=== PATIENT | female | born 1975 | race Two or more races ===

== ENCOUNTER → 2016-11-11 | Outpatient (CLI) | payer BC ==
[~2016-11-11] MED LIST: No meds per pt.
== END | disposition home or self-care (01) ==
LOC: STAR 08:42
PROVIDERS: ATTEND Obstetrics & Gynecology Female Pelvic Medicine and Reconstructive Surgery
DX: Z02.9 Encounter for administrative examinations, unspecified (principal)

== ENCOUNTER 2016-11-17 07:08 | Day surgery (SDC) | payer BC, OTHER ==
[~2016-11-17] VITALS: Ht 162.6 cm; Wt 99.3 kg
[~2016-11-17 07:08] MED LIST changes: +BUPIVACAINE/PF 0.25% ONE; +EPINEPHRINE 1 MG/ML, 1ML ONE; +NEOMY/POLYMYXIN B GU IRR. 1 ML IRRIG ONE
[2016-11-17] MEDS ORDERED: LACTATED RINGERS 1,000 ML IV SCH (07:43)
[2016-11-17 07:47] VITALS: BP 139/81
[2016-11-17 08:05] LABS: HCG UR OBC PASS
[2016-11-17] MEDS ORDERED: MIDAZOLAM 1 MG/ML, 2ML ONE (08:23)
[2016-11-17] MEDS ORDERED: FENTANYL PF 1000 MCG/20ML ONE (08:23)
[2016-11-17] MEDS ORDERED: FENTANYL PF 100 MCG/2ML ONE ×2 (08:24→11:26)
[2016-11-17] MEDS ORDERED: PROPOFOL 10 MG/ML, 20ML ONE (09:34)
[2016-11-17] MEDS ORDERED: ROCURONIUM 10 MG/ML ONE (09:34)
[2016-11-17] MEDS ORDERED: KETAMINE 10 MG/ML, 20ML ONE (09:34)
[2016-11-17] MEDS ORDERED: DEXAMETHASONE 4 MG/ML, 1ML ONE (09:34)
[2016-11-17] MEDS ORDERED: KETOROLAC 30 MG/1 ML ONE (09:34)
[2016-11-17] MEDS ORDERED: CEFOTETAN 2 GM ONE (09:34)
[2016-11-17] MEDS ORDERED: ONDANSETRON 2MG/ML, 2ML ONE ×2 (09:34→11:41)
[2016-11-17] MEDS ORDERED: METOCLOPRAMIDE 5 MG/ML, 2ML ONE (09:34)
[2016-11-17] MEDS ORDERED: HYDROmorphone 2 MG/ML, 1ML ONE (09:56)
[2016-11-17] MEDS ORDERED: PROMETHAZINE 25 MG/ML, 1ML IV PRN (10:00)
[2016-11-17] MEDS ORDERED: LABETALOL 5MG/ML, 20ML IV PRN (10:00)
[2016-11-17] MEDS ORDERED: ACETAMINOPHEN 325 MG TABLET PO PRN ×2 (10:00→16:30)
[2016-11-17] MEDS ORDERED: ONDANSETRON 2MG/ML, 2ML IVPush PRN ×2 (10:00→16:30)
[2016-11-17] MEDS ORDERED: hydrALAzine 20 MG/ML, 1ML IV PRN (10:00)
[2016-11-17] MEDS ORDERED: FENTANYL PF 100 MCG/2ML IV PRN (10:00)
[2016-11-17] MEDS ORDERED: MIDAZOLAM 1 MG/ML, 2ML IV PRN (10:00)
[2016-11-17] MEDS ORDERED: MEPERIDINE/PF 25MG/0.5ML IVPush PRN (10:00)
[2016-11-17] MEDS ORDERED: HYDROmorphone 1 MG/ML, 1ML IV PRN (10:00)
[2016-11-17] MEDS ORDERED: OXYcodone 5 MG/5 ML ORAL.SOL UDC PO PRN (10:00)
[2016-11-17] MEDS ORDERED: FUROSEMIDE 20 MG/2 ML ONE (10:43)
[2016-11-17] MEDS ORDERED: ACETAMINOPHEN 650 MG/20.3 ML UDC ONE (11:26)
[2016-11-17] MEDS ORDERED: OXYcodone 5 MG/5 ML ORAL.SOL UDC ONE (11:27)
[2016-11-17] MEDS ORDERED: SCOPOLAMINE PATCH, 1.5MG PATCH.TD72 TD ONE (14:00)
[2016-11-17] MEDS ORDERED: PROMETHAZINE 25 MG SUPP PR ONE (14:00)
[2016-11-17] MEDS ORDERED: ACETAMINOPHEN 650 MG SUPP PR PRN (16:30)
[2016-11-17] MEDS ORDERED: IBUPROFEN 600 MG TABLET PO SCH (16:30)
[2016-11-17] MEDS ORDERED: OXYcodone/APAP 5/325MG TABLET PO PRN (16:30)
[2016-11-17] MEDS ORDERED: HYDROcodone/APAP 5/325 TABLET PO PRN (16:30)
[2016-11-17] MEDS ORDERED: ZOLPIDEM 5MG TABLET PO PRN (16:30)
[2016-11-17] MEDS ORDERED: HYDROmorphone 2 MG/ML, 1ML IVPush PRN (16:30)
[2016-11-17] MEDS ORDERED: IBUPROFEN 600 MG TABLET ONE (16:31)
[2016-11-17] MEDS ORDERED: DIPHENHYDRAMINE 50 MG/ML, 1ML ONE (16:51)
[2016-11-17] MEDS ORDERED: DIPHENHYDRAMINE 50 MG/ML, 1ML IVPush PRN (17:00)
[2016-11-17] MEDS ORDERED: METOCLOPRAMIDE 5 MG/ML, 2ML IVPush ONE (17:00)
[2016-11-17] MEDS ORDERED: SIMETHICONE 80 MG CHEW TAB PO SCH (21:00)
[2016-11-17] MEDS ORDERED: DOCUSATE 100 MG CAPSULE PO SCH (21:00)
== END 2016-11-17 18:25 | disposition home or self-care (01) ==
LOC: OUT 07:08
PROVIDERS: ATTEND Obstetrics & Gynecology Female Pelvic Medicine and Reconstructive Surgery
DX: D25.9 Leiomyoma of uterus, unspecified (principal); N94.6 Dysmenorrhea, unspecified; N92.6 Irregular menstruation, unspecified; N39.3 Stress incontinence (female) (male); N80.3 Endometriosis of pelvic peritoneum
CPT/HCPCS: 57288; 58552; 81025; 88307; C1771; J0171; J1100; J1170; J1885; J1940; J2250; J2405; J2704; J2765; J3010; J3490; J7120; S0074

== ENCOUNTER 2020-11-06 10:56 | Observation (INO) | payer BC ==
[~2020-11-06] VITALS: Ht 162.6 cm; Wt 113.4 kg
[~2020-11-06 10:56] MED LIST changes: -BUPIVACAINE/PF 0.25% ONE; -EPINEPHRINE 1 MG/ML, 1ML ONE; -NEOMY/POLYMYXIN B GU IRR. 1 ML IRRIG ONE
--- NOTE | 2020-11-06 12:21 | NUR ---
STOCK LAYER:: URINE COLLECTED AND SENT TO LAB
[2020-11-06 12:38] LABS: MICROSCOPIC NOT IND
[2020-11-06] MEDS ORDERED: SUGAMMADEX 200 MG/2 ML IVPush ONE (13:12)
[2020-11-06] MEDS ORDERED: PROPOFOL 10 MG/ML, 20ML ONE (13:12)
--- NOTE | 2020-11-06 13:21 | NUR ---
PT CAME IN CO RLQ AND RUQ ABD PAIN THAT RADIATES TO RIGHT GROIN. STARTED THURSDAY AND HAS GOTTEN WORSE EACH DAY. PT PROVIDED UA. RESTING IN RPEORIA. BLANKET PROVIDED. CONNECTED TO MONITORING EQUIPMENT. AWAITING PROVIDER ORDERS AT THIS TIME
[2020-11-06] MEDS ORDERED: HYDROmorphone 1 MG/ML, 1ML INJ IV ONE (14:00)
[2020-11-06] MEDS ORDERED: HYDROmorphone 2 MG/ML, 1ML ONE (14:16)
[2020-11-06 14:25] LABS: ALBUMIN 3.3 g/dL (3.4-5.0); ANION GAP 6 mmol/L (5-15); CALCIUM 8.8 mg/dL (8.5-10.1); CHLORIDE 110 mmol/L (98-107)
--- NOTE | 2020-11-06 14:26 | NUR ---
IV STARTED. MEDICATED PER MAR
[2020-11-06 14:28] LABS: ALANINE AMINOTRANSFERASE 28 U/L (12-78); ALKALINE PHOSPHATASE 105 U/L (45-117); BILIRUBIN,TOTAL 0.3 mg/dL (0.2-1.0); CREATININE 0.58 mg/dL (0.55-1.02); TOTAL PROTEIN 8.2 g/dL (6.4-8.2)
[2020-11-06 14:36] LABS: RED BLOOD COUNT 4.57 x10^6/uL (3.82-5.3)
[2020-11-06 14:37] LABS: MEAN CORPUSCULAR HEMOGLOBIN 29.4 pg (27.0-34.8)
[2020-11-06 14:38] LABS: BASOPHILS % (AUTO) 0 % (0-1); EOSINOPHILS % (AUTO) 2 % (1-7); LYMPHOCYTES % (AUTO) 27 % (22-44); MEAN CORPUSCULAR HGB CONC 33.1 g/dL (32.4-35.8); MEAN PLATELET VOLUME 8.6 fL (7.4-10.4); MONOCYTES % (AUTO) 5 % (2-9); NEUTROPHILS % (AUTO) 66 % (42-75); PLATELET COUNT 287 x10^3/uL (130-400); RED CELL DISTRIBUTION WIDTH 13.1 % (9.6-15.2)
[2020-11-06] MEDS ORDERED: OMNIPAQUE 350 MG/ML, 100ML BOTTLE ONE (15:03)
[2020-11-06] MEDS ORDERED: CEFOTETAN PMX 1GM/50ML 50 ML IVPB ONE (15:30)
--- NOTE | 2020-11-06 15:38 | NUR ---
kwame wilson collected and walked to lab. pt educated on plan of care
--- NOTE | 2020-11-06 15:49 | NUR ---
TASK RN: WHO FORM COMPLETED. ALL PT CLOTHES REMOVED. PT OOB AND AMBULATED TO BATHROOM, UPRIGHT STEADY GAIT. RTD TO ROOM W/O DIFFICULTY, PULSE OX AND BP MONITORS IN PLACE, CALL LIGHT W/I REACH. IV ANTIBIOTICS INFUSING W/O DIFFICULTY.
[2020-11-06] MEDS ORDERED: ONDANSETRON 2MG/ML, 2ML ONE (16:02)
--- NOTE | 2020-11-06 16:09 | NUR ---
TASK RN: PT MED FOR NAUSEA NOTED. SBAR RPT TO LAITH THORNE
[2020-11-06] MEDS ORDERED: ONDANSETRON 2MG/ML, 2ML IVPush ONE (16:30)
[2020-11-06] MEDS ORDERED: MORPHINE SULFATE 4 MG/ML, 1ML IVPush PRN (18:00)
[2020-11-06 18:07] VITALS: BP 136/76
[2020-11-06 18:53] VITALS: BP 125/78
[2020-11-06] MEDS ORDERED: EPINEPHRINE 1 MG/ML, 1ML ONE (21:11)
[2020-11-06] MEDS ORDERED: BUPIVACAINE/PF 0.5% ONE (21:11)
[2020-11-07 00:13] VITALS: BP 133/76
[2020-11-07] MEDS ORDERED: FENTANYL PF 250 MCG/5ML ONE (01:06)
[2020-11-07] MEDS ORDERED: MIDAZOLAM 1 MG/ML, 2ML ONE (01:06)
[2020-11-07] MEDS ORDERED: ROCURONIUM 10MG/ML,5ML ONE (01:08)
[2020-11-07] MEDS ORDERED: DEXAMETHASONE 4 MG/ML, 1ML ONE ×2 (01:08→01:24)
[2020-11-07] MEDS ORDERED: BUPIVACAINE/PF-EPI 0.5% 1:200K IM ONE (01:22)
[2020-11-07] MEDS ORDERED: ONDANSETRON 2MG/ML, 2ML ONE ×2 (01:24)
[2020-11-07] MEDS ORDERED: CEFOTETAN 2 GM ONE (01:24)
[2020-11-07] MEDS ORDERED: HYDROmorphone 1 MG/ML, 1ML INJ IVPush PRN (02:00)
[2020-11-07] MEDS ORDERED: ONDANSETRON 2MG/ML, 2ML IVPush PRN ×2 (02:00→03:00)
[2020-11-07] MEDS ORDERED: PROMETHAZINE 25 MG/ML, 1ML IVPush PRN (02:00)
[2020-11-07] MEDS ORDERED: OXYcodone 5 MG/5 ML ORAL.SOL UDC PO PRN (02:00)
[2020-11-07] MEDS ORDERED: FENTANYL PF 100 MCG/2ML IV PRN (02:00)
[2020-11-07] MEDS ORDERED: MEPERIDINE/PF 25MG/0.5ML IVPush PRN (02:00)
[2020-11-07] MEDS ORDERED: MIDAZOLAM 1 MG/ML, 2ML IV PRN (02:00)
[2020-11-07] MEDS ORDERED: hydrALAzine 20 MG/ML, 1ML IV PRN (02:00)
[2020-11-07] MEDS ORDERED: LORazepam 2 MG/ML, 1ML IVPush PRN (02:00)
[2020-11-07] MEDS ORDERED: DIAZEPAM 5 MG/ML, 2ML IVPush PRN (02:00)
[2020-11-07] MEDS ORDERED: EPHEDRINE 50 MG/ML, 1ML IVPush PRN (02:00)
[2020-11-07] MEDS ORDERED: DIPHENHYDRAMINE 50 MG/ML, 1ML IVPush PRN ×3 (02:00→03:00)
[2020-11-07] MEDS ORDERED: ACETAMINOPHEN 325 MG TABLET PO PRN (02:00)
[2020-11-07] MEDS ORDERED: ALBUTEROL SULFATE 2.5 MG/3 ML NPPB PRN (02:00)
[2020-11-07] MEDS ORDERED: PROMETHAZINE 12.5 MG SUPP PR PRN (02:00)
[2020-11-07] MEDS ORDERED: LABETALOL 5MG/ML, 20ML IV PRN (02:00)
[2020-11-07 02:36] VITALS: BP 132/81
[2020-11-07 06:54] VITALS: BP 126/81
[2020-11-07] MEDS: OXYcodone/APAP 5/325MG TABLET PO PRN ×3 (08:30→15:45)
[2020-11-07 13:10] VITALS: BP 137/75
== END 2020-11-07 15:50 | disposition home or self-care (01) ==
LOC: ED 15:34 → 4NW 15:35 → ED 15:35 → 4NW 17:30
PROVIDERS: ADMIT Colon & Rectal Surgery; ATTEND Colon & Rectal Surgery
DX: K35.80 Unspecified acute appendicitis (principal); Z20.822 Contact with and (suspected) exposure to COVID-19; E66.01 Morbid (severe) obesity due to excess calories; K80.20 Calculus of gallbladder without cholecystitis without obstruction; Z90.710 Acquired absence of both cervix and uterus; Z79.899 Other long term (current) drug therapy
CPT/HCPCS: 36415; 44970; 74177; 80053; 81003; 83690; 85025; 87635; 88304; 93005; 96365; 96375; 99284; G0378; J0171; J1100; J1170; J2250; J2270; J2405; J2704; J3010; Q9967; S0020